=== PATIENT | male | born 1965 | race Caucasian/White ===

== ENCOUNTER 2017-09-15 06:21 | Emergency (ER) | payer SELFPAY ==
[2017-09-15 06:47] LABS: Absolute Lymphocytes (CBC) 2.4 K/uL (0.7-4.9); Absolute Monocytes 0.7 K/uL (0.1-1.3); Absolute Neutrophil 4.5 K/uL (1.8-8.0); Basophils % 1.1 % (0-1.3); Eosinophils % 3.9 % (0-4.4); Hematocrit 42.3 % (39.6-49.0); Lymphocytes % 29.7 % (15.3-44.8); MCH 29.1 pg (27.0-35.0); MCV 85.5 fL (80-100); MPV 9.1 fL (7.6-11.3); Monocytes % 9.2 % (3.3-12.3); RBC Red Blood Cell Count 4.95 M/uL (4.33-5.43)
[2017-09-15 06:55] LABS: Potassium 3.6 mEq/L (3.6-5.0)
[2017-09-15] MEDS ORDERED: NA CHLORIDE 0.9% 1,000 ML ONE ×2 (07:00→08:42)
[2017-09-15] MEDS ORDERED: TETANUS & DIPHTHERIA TOX,ADULT 0.5 ML VIAL ONE (08:42)
--- NOTE | 2017-09-15 09:25 | RAD REPORT ---
EXAM DESCRIPTION: RAD - Elbow Right 3 View - 09/15/2017 7:18 am CLINICAL HISTORY: Right elbow pain status post injury FINDINGS: No fracture or dislocation is seen
--- NOTE | 2017-09-15 09:26 | RAD REPORT ---
EXAM DESCRIPTION: RAD - Elbow Left 3 View - 09/15/2017 7:18 am CLINICAL HISTORY: Left elbow pain status post trauma FINDINGS: No fracture or dislocation is seen.
--- NOTE | 2017-09-15 09:28 | RAD REPORT ---
EXAM DESCRIPTION: Christie Single View09/15/2017 7:18 am CLINICAL HISTORY: Chest pain COMPARISON: none FINDINGS: The lungs appear clear of acute infiltrate. The heart is normal size IMPRESSION: No acute abnormalities displayed
--- NOTE | 2017-09-15 09:29 | RAD REPORT ---
EXAM DESCRIPTION: RAD - Knee Right 3 View - 09/15/2017 7:19 am CLINICAL HISTORY: Right knee pain status post injury FINDINGS: No fracture or dislocation is seen.
--- NOTE | 2017-09-15 09:31 | RAD REPORT ---
EXAM DESCRIPTION: RAD - Knee Left 3 View - 09/15/2017 7:18 am CLINICAL HISTORY: Left knee pain status post injury FINDINGS: A horizontal lucency is present within the patella. Most likely this represents trabecula as a significant joint effusion is not seen. If the patient has clinical symptoms to suggest a fractu re a CT could be obtained. Otherwise no fracture or dislocation is noted
--- NOTE | 2017-09-15 09:44 | RAD REPORT ---
EXAM DESCRIPTION: RAD - Wrist Left 3 View - 09/15/2017 7:19 am CLINICAL HISTORY: Left wrist pain status post injury FINDINGS: No fracture is seen. Widening of the scapholunate space may indicate scapholunate dissociation
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
[2017-09-15 09:58] LABS: Urine Blood TRACE (NEG); Urine Glucose NEGATIVE (NEG); Urine Protein 1+ (NEG); Urine Specific Gravity 1.015 (1.005-1.030); Urine pH 5.5 (5.0-7.0)
[2017-09-15] MEDS ORDERED: PROMETHAZINE 25 MG/ML VIAL ONE (10:09)
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
== END 2017-09-15 13:52 | disposition home or self-care (01) ==
LOC: ER 06:21
DX: S00.81XA Abrasion of other part of head, initial encounter (principal); S50.312A Abrasion of left elbow, initial encounter; S50.311A Abrasion of right elbow, initial encounter; S80.211A Abrasion, right knee, initial encounter; V29.49XA Motorcycle driver injured in collision with other motor vehicles in traffic accident, initial encounter; Z72.0 Tobacco use
CPT/HCPCS: 36415; 70450; 71045; 71260; 72125; 74177; 80048; 81003; 85025; 86850; 86900; 86901; 90714; 96374; 99285; J2550; J7030; Q9967